=== PATIENT | female | born 1950 | race Caucasian/White ===

== ENCOUNTER 2017-09-25 14:19 | Emergency (ER) | payer MEDICARE, OTHER ==
[~2017-09-25] VITALS: Ht 162.6 cm; Wt 80.0 kg
[2017-09-25] MEDS ORDERED: IBUPROFEN 600MG TABLET PO ONE (17:45)
[2017-09-25 18:22] VITALS: BP 109/64
== END 2017-09-25 18:56 | disposition home or self-care (01) ==
LOC: ER 14:37
DX: S16.1XXA Strain of muscle, fascia and tendon at neck level, initial encounter (principal); S40.011A Contusion of right shoulder, initial encounter; S70.01XA Contusion of right hip, initial encounter; S80.01XA Contusion of right knee, initial encounter; S20.211A Contusion of right front wall of thorax, initial encounter; S00.83XA Contusion of other part of head, initial encounter; K57.90 Diverticulosis of intestine, part unspecified, without perforation or abscess without bleeding; K76.0 Fatty (change of) liver, not elsewhere classified; I10 Essential (primary) hypertension; Z90.710 Acquired absence of both cervix and uterus; V43.62XA Car passenger injured in collision with other type car in traffic accident, initial encounter; Y93.89 Activity, other specified; Y92.411 Interstate highway as the place of occurrence of the external cause; Y99.8 Other external cause status
CPT/HCPCS: 70450; 71045; 72125; 73030; 73562; 74176; 99284